=== PATIENT | female | born 1945 | race Caucasian/White ===

== ENCOUNTER → 2016-09-01 | Outpatient (CLI) | payer OTHER ==
--- NOTE | 2016-09-01 18:56 | DX ---
CORRECTED ORDERING PHYSICIAN Cervical Spine, 4 Views, Including Lateral Flexion and Extension Positioning HISTORY: Cervical spine pain. Evaluate for instability. FINDINGS: There is fusion of C3 and C4 which appears congenital as there appears to be fusion of the posterior elements. At C2-C3, marked degenerative intervertebral disc height loss is associated with mild degenerative anterolisthesis of C2 upon C3, measuring 2 mm, without change in flexion or extension. Marked intervertebral disc height loss at C4-C5 is also associated with mild fixed degenerative retrolisthesis of C4 upon C5. Intervertebral disc height loss is also present at C5-C6 and C6-C7. At C7-T1, there is minimal degenerative anterolisthesis of C7 upon T1 which is fixed. IMPRESSION: 1. Congenital fusion of C3 and C4. 2. Degenerative disc disease with grade 1 degenerative spondylolisthesis at C2- C3. 3. Degenerative disc disease at C4-C5 with mild degenerative retrolisthesis, fixed. 4. Degenerative disc disease at C5-C6, C6-C7, C7-T1, with grade 1 degenerative anterolisthesis of C7 upon T1, fixed. MTDD
== END | disposition home or self-care (01) ==
LOC: FIMAGING 12:11
DX: M43.22 Fusion of spine, cervical region (principal); M50.31 Other cervical disc degeneration, high cervical region; M50.321 Other cervical disc degeneration at C4-C5 level; M50.322 Other cervical disc degeneration at C5-C6 level

== ENCOUNTER → 2017-06-17 | Outpatient (CLI) | payer OTHER | LOC: FIMAGING 14:41 | PROVIDERS: ATTEND Family Medicine | DX: Z12.31 Encounter for screening mammogram for malignant neoplasm of breast (principal) | CPT/HCPCS: G0202 ==

== ENCOUNTER → 2018-05-29 | Outpatient (CLI) | payer OTHER | LOC: BMCIMAGING 16:19 | PROVIDERS: ATTEND Emergency Medicine | DX: S82.51XA Displaced fracture of medial malleolus of right tibia, initial encounter for closed fracture (principal); S92.255A Nondisplaced fracture of navicular [scaphoid] of left foot, initial encounter for closed fracture ==

== ENCOUNTER → 2018-06-19 | Outpatient (CLI) | payer OTHER | LOC: FIMAGING 11:19 | PROVIDERS: ATTEND Family Medicine | DX: Z12.31 Encounter for screening mammogram for malignant neoplasm of breast (principal) ==